=== PATIENT | male | born 1980 ===

== ENCOUNTER 2020-11-19 02:04 | Emergency (ER) | payer OTHER, SELFPAY ==
--- NOTE | ~2020-11-19 | US_ITS ---
EXAMINATION: US ABDOMEN LIMITED CLINICAL INFORMATION: Right upper quadrant/epigastric pain. COMPARISON: None TECHNIQUE: Real-time imaging of the right upper quadrant abdominal viscera. FINDINGS: Partially limited exam due to bowel gas. PANCREAS: The visualized proximal portion of the pancreas is unremarkable. The distal portion is obscured secondary to overlying bowel gas. LIVER: The liver is normal in size. The liver contour is normal. Parenchymal echogenicity is normal. There is a left lobe cyst measuring up to 1.6 cm. There is no intrahepatic biliary duct dilatation seen. GALLBLADDER: The gallbladder is physiologically distended without evidence of stones, sludge, polyps, wall thickening or pericholecystic fluid. Sonographic Jones sign is reportedly negative. COMMON BILE DUCT: Normal in caliber measuring 0.4 cm in diameter. RIGHT KIDNEY: No hydronephrosis. No renal calculi or focal parenchymal lesions. The kidney measures 10.9 cm in maximum dimension. FREE FLUID: None. US/US abdomen limited IMPRESSION: No acute findings identified.
[2020-11-19 02:47] VITALS: BP 128/86; PULSE 60; RESP 18; TEMP 36.4; O2SAT 99; BMI 25.8
[2020-11-19 03:15] LABS: MANUAL DIFF FLAG NO
--- NOTE | 2020-11-19 03:19 | ED_ITS ---
HPI - Abdominal Pain General Chief Complaint: Abdominal Pain Stated Complaint: Abdominal Pain Time Seen by Provider: 11/19/20 02:14 Source: patient Mode of arrival: ambulatory History of Present Illness HPI narrative: This is a 40-year-old male who presents with 2nd episode of abdominal discomfort that has resulted in nausea and vomiting times 10, nonbloody/nonbilious and patient states he has had improvement of his abdominal discomfort afterwards. He denies any associated fever, chills, diarrhea, urinary pain/burning/frequency. He currently is pain free. Related Data Allergies Allergy/AdvReac Type Severity Reaction Status Date / Time No Known Allergies Allergy Unverified 03/01/20 16:54 Review of Systems Review of Systems Pertinent positives and negatives as stated in HPI and 10 point review of systems is otherwise negative. Physical Exam Vital Signs: Vital Signs: Last Vital Signs Temp 98.7 F 11/19/20 04:00 Pulse 54 11/19/20 04:00 Resp 18 11/19/20 04:00 BP 114/68 11/19/20 04:00 Pulse Ox 97 11/19/20 04:00 Body Mass Index 25.8 VITAL SIGNS: Reviewed. GENERAL: Well developed, well nourished, in no acute distress. HEAD: Normocephalic/atraumatic EYES: PERRLA, EOMI OROPHARYNX: no oral lesions noted, posterior pharynx clear NECK: Supple, no adenopathy LUNGS: Normal breath sounds. No adventitious sounds or accessory muscle use. SpO2<99> CARDIOVASCULAR: Regular rate and rhythm without noted murmurs ABDOMEN: Soft, tenderness at right upper quadrant/epigastric, Jones's positive, non-distended with bowel sounds. Course Course Course Narrative: 40-year-old male with history and clinical presentation sugge stive of cholecystitis, biliary colic and less likely pancreatitis or gastritis. Review of all investigations negative for acute findings. Altered password test with the patient at bedside and he was discharged in stable condition with instructions to follow-up with his primary care provider for re-evaluation and further outpatient management. MDM - Abdominal Pain Lab Data Result diagrams: 11/19/20 02:56 11/19/20 02:56 Labs: Lab Results 11/19/20 11/19/20 11/19/20 Range/Units 02:56 02:56 02:56 WBC 11.2 H (4.8-10.8) X10*3/uL RBC 4.59 L (4.60-5.80) X10*6/uL Hgb 13.9 L (14.0-18.0) g/dl Hct 42.0 (42-52) % MCV 91.5 (80-98) fL MCH 30.3 (27.0-33.0) pg MCHC 33.1 (31.0-36.0) g/dl RDW 13.5 (11.0-16.0) % Plt Count 269 (160-400) X10*3/uL MPV 9.1 L (9.4-12.4) fL Immature Gran % (Auto) 0.4 (0.0-0.4) % Neut % (Auto) 87.6 H (45-73) % Lymph % (Auto) 7.0 L (20-40) % [place] % (Auto) 4.4 (2-11) % Eos % (Auto) 0.3 (0-4) % Baso % (Auto) 0.3 (0-2) % Lymph # (Auto) 0.8 L (1.2-4.9) X10*3/uL [place] # (Auto) 0.5 (0.1-1.2) X10*3/uL Eos # (Auto) 0.0 (0.0-0.4) X10*3/uL Baso # (Auto) 0.0 (0.0-0.2) X10*3/uL Abs Immat Gran (auto) 0.04 H (0.00-0.03) X10*3/uL Absolute Neuts (auto) 9.8 H (2.0-8.3) X10*3/uL Absolute Nucleated RBC 0.000 (0.0-0.012) X10*3/uL Nucleated RBC % (auto) 0.0 (0.0-0.2) /100WBC Sodium 142 (135-145) mmol/L Potassium 3.7 (3.3-5.1) mmol/L Chloride 104 (96-108) mmol/L Carbon Dioxide 30 H (22-29) mmol/L Anion Gap 12 (12-20) BUN 15 (9-16) mg/dL Creatinine 0.92 (0.5-1.4) mg/dL Estim Creat Clear Calc 97.7 Estimated GFR > 60 Random Glucose 114 (60-115) mg/dL Calcium 8.8 (8.4-10.2) mg/dL Total Bilirubin 0.6 (0.0-1.0) mg/dL AST 21 (5-37) U/L ALT 19 (0-40) U/L Alkaline Phosphatase 83 (39-117) U/L Total Protein 6.9 (6.5-8.0) g/dL Albumin 4.3 (3.5-5.0) g/dL Lipase 36 (8-78) U/L Discharge Plan Discharge Clinical Impression: Gastroenteritis Patient Disposition: Home, Self-Care Instructions: Gastroenteritis (ED) Additional Instructions: Resume all home medications as prescribed. Please follow-up with your primary care provider for re-evaluation and further outpatient management. Return to the ER for any worsening of symptoms. Referrals: Dashawn Davis MD [Primary Care Provider] - 2 days [facility] Past Medical History Source: nursing notes reviewed Medical History ADHD No acute medical problems Surgical History Previous back surgery Social History Social History Alcohol intake: current Alcohol intake frequency: holidays/special occasions only Smoked in Last 30 Days: No Use of substances other than those prescribed or required for medical reasons: No Advance Directives: No Advance Directives Information Provided: Yes
[2020-11-19 03:46] LABS: Alanine Aminotransferase 19 U/L (0-40); Albumin Level 4.3 g/dL (3.5-5.0); Alkaline Phosphatase 83 U/L (39-117); Anion Gap 12 (12-20); Aspartate Amino Transferase 21 U/L (5-37); Bilirubin Total 0.6 mg/dL (0.0-1.0); Blood Urea Nitrogen 15 mg/dL (9-16); Calcium 8.8 mg/dL (8.4-10.2); Carbon Dioxide 30 mmol/L (22-29); Chloride 104 mmol/L (96-108); Creatinine Clr Calc Pharmacy 97.7; Estimated Glomerular Filt Rate > 60; Glucose Random 114 mg/dL (60-115); Potassium 3.7 mmol/L (3.3-5.1); Sodium 142 mmol/L (135-145); Total Protein 6.9 g/dL (6.5-8.0)
[2020-11-19 03:47] LABS: Lipase 36 U/L (8-78)
[2020-11-19 04:00] VITALS: BP 114/68; PULSE 54; RESP 18; TEMP 37.1; O2SAT 97
[2020-11-19 04:12] LABS: Basophils Percent Auto 0.3 % (0-2); Eosinophils Percent Auto 0.3 % (0-4); Hemoglobin 13.9 g/dl (14.0-18.0); Imm Gran Abs Auto 0.04 X10*3/uL (0.00-0.03); Imm Gran Pct Auto 0.4 % (0.0-0.4); Lymphocytes Absolute Auto 0.8 X10*3/uL (1.2-4.9); Mean Corpuscular HGB Conc 33.1 g/dl (31.0-36.0); Mean Corpuscular Hemoglobin 30.3 pg (27.0-33.0); Mean Corpuscular Volume 91.5 fL (80-98); Mean Platelet Volume 9.1 fL (9.4-12.4); Monocytes Absolute Auto 0.5 X10*3/uL (0.1-1.2); Monocytes Percent Auto 4.4 % (2-11); Neutrophils Absolute Auto 9.8 X10*3/uL (2.0-8.3); Neutrophils Percent Auto 87.6 % (45-73); Platelet Count 269 X10*3/uL (160-400); Red Blood Count 4.59 X10*6/uL (4.60-5.80); Red Cell Distribution Width 13.5 % (11.0-16.0); White Blood Count 11.2 X10*3/uL (4.8-10.8)
[2020-11-19] MEDS: 0.9 % Sodium Chloride 2,000 ML 999 ML IV (04:58)
== END 2020-11-19 07:34 | disposition home or self-care (01) ==
PROVIDERS: Emergency Provider Student in an Organized Health Care Education/Training Program; PCP Family Medicine
DX: K52.9 Noninfective gastroenteritis and colitis, unspecified (principal); R10.9 Unspecified abdominal pain
CPT/HCPCS: 36415; 76705; 80053; 83690; 85025; 96360; 99284

== ENCOUNTER 2021-03-21 09:53 | Outpatient (REF) | payer OTHER, SELFPAY | END 2021-03-21 09:54 | disposition home or self-care (01) | LOC: HO.LAB 09:53 | PROVIDERS: PCP Physician Assistant; Visit Provider Internal Medicine | DX: Z20.822 Contact with and (suspected) exposure to COVID-19 (principal) | CPT/HCPCS: C9803; U0003; U0005 ==

== ENCOUNTER 2023-11-17 03:25 | Inpatient (IN) | payer MEDICAID, SELFPAY ==
[2023-11-17] VITALS (15 sets, daily range): BP systolic 133–167; BP diastolic 75–97; PULSE 58–97; RESP 12–22; TEMP 36.4–38.3; O2SAT 95–100; BMI 26.0; BMI 26.6
--- NOTE | ~2023-11-17 | CT_ITS ---
EXAMINATION: CT ABDOMEN AND PELVIS WITH CONTRAST CLINICAL INFORMATION: Epigastric pain. COMPARISON: Abdomen ultrasound from 11/19/2020 TECHNIQUE: Multidetector volumetric images were obtained from the superior aspect of the liver through the pubic symphysis following administration 85 mL of Omnipaque 350 intravenous contrast. Sagittal and coronal reformatted images were obtained on the technologist's workstation. Oral contrast: No This CT examination was performed using dose optimization techniques as appropriate, variously including the following: *Automated exposure control *Adjustment of mA and/or kV according to patient size (this includes techniques or standardized protocols for targeted exams where dose is matched to indication/reason for exam; i.e. extremities or head) *Use of iterative reconstruction technique DLP: 530 mGy-cm FINDINGS: LUNG BASES: No pulmonary consolidation or pleural effusion. There is atherosclerotic calcification of the visualized left anterior descending and right coronary arteries. HEPATOBILIARY: Simple cysts within the liver, largest in the left lobe 2 cm AP. Gallbladder is distended up to 4.2 cm transverse diameter and 11.5 cm in length. There appear to be faintly visible calculi within the lumen of the gallbladder and findings include calcific density in the region of the gallbladder neck. Gallbladder wall is diffusely thickened and pericholecystic fluid is present. Common bile duct is 0.6 cm diameter. PANCREAS: No edema, pancreatic ductal dilatation or mass. SPLEEN: Normal. ADRENAL GLANDS: Normal. KIDNEYS AND URETERS: Kidneys are normal in size and enhance symmetrically. No nephrolithiasis, hydronephrosis or perinephric edema. 1.4 cm simple cyst of the left kidney. No renal imaging follow-up is recommended for a simple cyst. BLADDER: Normal. BOWEL AND PERITONEUM: No dilated bowel loops. The trace amount of fluid adjacent to the second portion of duodenum appears to be secondary to the cholecystitis. No dilated bowel loops. The appendix is normal. ABDOMINAL WALL: Unremarkable. VASCULATURE: Abdominal aorta is normal in caliber and its branches are widely patent. LYMPH NODES: No pathologic sized lymph nodes in the abdomen or pelvis. No inguinal lymphadenopathy. PELVIC VISCERA: Prostate gland is unremarkable. Trace amount of free fluid is present within the pelvis. MUSCULOSKELETAL: Degenerative loss of disc height, vacuum disc phenomenon and disc bulge at L4-L5. No acute or suspicious osseous abnormality. CT/CT abdomen pelvis w IV con IMPRESSION: Imaging findings consistent with cholelithiasis and acute cholecystitis.
[2023-11-17 03:49] LABS: MANUAL DIFF FLAG NO
[2023-11-17 03:50] LABS: Basophils Absolute Auto 0.1 X10*3/uL (0.0-0.2); Basophils Percent Auto 0.4 % (0-2); Eosinophils Absolute Auto 0.2 X10*3/uL (0.0-0.4); Eosinophils Percent Auto 1.5 % (0-4); Hematocrit 42.1 % (42.0-52.0); Hemoglobin 14.6 g/dl (14.0-18.0); Imm Gran Abs Auto 0.05 X10*3/uL (0.00-0.03); Imm Gran Pct Auto 0.4 % (0.0-0.4); Lymphocytes Percent Auto 15.1 % (20-40); Mean Corpuscular HGB Conc 34.7 g/dl (31.0-36.0); Mean Corpuscular Hemoglobin 30.8 pg (27.0-33.0); Mean Corpuscular Volume 88.8 fL (80.0-98.0); Mean Platelet Volume 8.6 fL (9.4-12.4); Monocytes Absolute Auto 1.5 X10*3/uL (0.1-1.2); Monocytes Percent Auto 11.1 % (2-11); Neutrophils Absolute Auto 9.5 x10*3/uL (2.0-8.3); Neutrophils Percent Auto 71.5 % (45-73); Platelet Count 252 X10*3/uL (160-400); Red Blood Count 4.74 X10*6/uL (4.60-5.80); Red Cell Distribution Width 13.6 % (11.0-16.0); White Blood Count 13.3 X10*3/uL (4.8-10.8)
[2023-11-17 04:01] LABS: Anion Gap 15 (12-20); Blood Urea Nitrogen 18 mg/dL (9-16); Calcium 10.3 mg/dL (8.4-10.2); Carbon Dioxide 26 mmol/L (22-29); Chloride 102 mmol/L (96-108); Creatinine Clr Calc Pharmacy 102.6; Estimated Glomerular Filt Rate > 60; Glucose Random 122 mg/dL (60-115); Potassium 3.9 mmol/L (3.3-5.1); Sodium 139 mmol/L (135-145)
[2023-11-17 04:26] LABS: Influenza A PCR NEGATIVE (Negative); Influenza B PCR NEGATIVE (Negative); Resp Syncy Virus RNA Qual PCR NEGATIVE (Negative); SARS COV2 PCR INHOUSE NEGATIVE (Negative)
[2023-11-17 04:29] LABS: Alanine Aminotransferase 16 U/L (0-40); Albumin Level 4.2 g/dL (3.5-5.0); Alkaline Phosphatase 74 U/L (39-117); Aspartate Amino Transferase 17 U/L (5-37); Bilirubin Direct 0.3 mg/dL (0.0-0.5); Bilirubin Total 0.7 mg/dL (0.0-1.0); Lipase 31 U/L (8-78); Total Protein 7.4 g/dL (6.5-8.0)
--- NOTE | 2023-11-17 05:32 | ED_ITS ---
HPI - Abdominal Pain General Chief Complaint: Abdominal Pain Stated Complaint: stomach/abd pain, fever Time Seen by Provider: 11/17/23 05:26 Source: patient Mode of arrival: ambulatory Limitations: no limitations History of Present Illness ED Provider: Dr. Comfort Orellana HPI narrative: Patient comes to the emergency room complaining of nausea, vomiting, severe epigastric pain. Patient denies diarrhea fever or chills. Patient has been having intermittent pain for the last 2 nights, but tonight a few hours ago patient started having significant pain. Related Data Allergies Allergy/AdvReac Type Severity Reaction Status Date / Time No Known Allergies Allergy Unverified 11/17/23 03:35 Review of Systems Review of Systems Constitutional : No Weight loss, No Fever, No Chills, No Night Sweats, No Fatigue, No Malaise ENT/Mouth : No Hearing loss, No Ear Pain, No Nasal Congestion, No Sinus Pain, No Hoarseness, No sore throat, No Rhinorrhea, No Swallowing Difficulty Eyes: No Eye Pain, No Swelling, No Redness, No Foreign Body, No Discharge, No Vision Changes Cardiovascular : No Chest Pain, No SOB, No Dyspnea on Exertion, No Orthopnea, No Edema, No Palpitations Respiratory : No Cough, No Sputum, No Wheezing, No Smoke Exposure, No Dyspnea Gastrointestinal : Complaining of nausea vomiting, no diarrhea, complaining of severe epigastric pain. Genitourinary : no irregular bleeding, No Dysuria, No Urinary Frequency, No Hematuria, No Urinary Incontinence, No Urgency, No Flank Pain, No Urinary Flow Changes, No Hesitancy Musculoskeletal : No joint pain, No Myalgias, No Joint Swelling Skin : No Skin Lesions, No rash Neuro : No Weakness, No Numbness, No Paresthesias, No Loss of Consciousness, No Dizziness, No Headache Psych : No Anxiety/Panic, No Depression, No SI/HI/AH/VH, No Social Issues, Heme/Lymph: No Bruising, No Bleeding,No Lymphadenopathy Endocrine : No Polyuria, No Polydipsia, No Temperature Intolerance [facility] Past Medical History Medical History ADHD No acute medical problems Surgical History Previous back surgery Social History Social History Alcohol intake: current Alcohol intake frequency: holidays/special occasions only Advance Directives: No Physical Exam ED Vital Signs: Vital Signs - 24 hr 11/17/23 03:32 11/17/23 04:40 11/17/23 07:20 Temperature 97.6 F 97.8 F 98.1 F Pulse Rate 58 61 63 Respiratory Rate 18 19 18 Blood Pressure 136/80 167/97 H 145/89 H Pulse Oximetry 100 100 100 Oxygen Delivery Method Room Air Room Air Room Air 11/17/23 08:06 Temperature Pulse Rate Respiratory Rate 20 Blood Pressure Pulse Oximetry Oxygen Delivery Method BMI result Body Mass Index 26.0 Const Other: Appearance: Alert. Oriented X3. No acute distress. Eyes: Pupils equal, round and reactive to light. ENT: Pharynx normal. Neck: Normal inspection. Neck supple. No lymph nodes noted. No crepitus CVS: Normal heart rate and rhythm. Pulses normal. Normal S1 and S2 Respiratory: No respiratory distress. Breath sounds normal. No Wheezing. No rales Abdomen: Soft, significant pain to palpation in right upper quadrant and epigastric area, positive Jones sign Skin: Skin warm and dry. Normal skin color. Normal skin turgor. Extremities: No lower extremity edema. No Lacerations. No Rash Neuro: Oriented X 3. No motor deficit. No sensory deficit. Moving all extremities. No slurred speech. CN 2 through 12 grossly intact Psych: calm, cooperative, normal affect Course Course Course Narrative: -patient has received normal saline, famotidine, ketorolac, 2 doses of morphine, 1 dose of Dilaudid, Reglan, Zofran, Zosyn -my interpretation of CT scan, acute cholecystitis? CT scan is definitely abnormal -the radiology reports are delay today. I asked Dr. Hua to review patient's CT scan. Ultrasound pending -labs remained stable, blood pressure 145/89, heart rate 63, no fever, oxygen saturation 100% on room air -sign out given to my colleague Dr. Hill Medical Decision Making Medical Decision Making MDM Narrative: Radiology report confirmed acute cholecystitis -discussed the patient with Dr. Hua, patient being admitted/likely going to the OR to -patient is NPO -I informed the patient of the above-mentioned findings. -admission pending per surgery but they are aware of patient. Sign-out given to my colleague Dr. Hill Differential Diagnosis Differential Diagnoses: The differential diagnosis associated with the presentation includes (Acute cholecystitis, pancreatitis, volvulus, SBO) Admission/Observation Consideration of admission/observation: Escalation of care including admission/observation considered (Patient will be admitted) Consult Healthcare Provider Management of the patient was discussed with: Biochemistry Professor Lab Data MDM Lab Attestation statement: I reviewed the patient's lab results. 11/17/23 03:42 11/17/23 03:42 Labs: Lab Results 11/17/23 Range/Units 03:42 WBC 13.3 H (4.8-10.8) X10*3/uL RBC 4.74 (4.60-5.80) X10*6/uL Hgb 14.6 (14.0-18.0) g/dl Hct 42.1 (42.0-52.0) % MCV 88.8 (80.0-98.0) fL MCH 30.8 (27.0-33.0) pg MCHC 34.7 (31.0-36.0) g/dl RDW 13.6 (11.0-16.0) % Plt Count 252 (160-400) X10*3/uL MPV 8.6 L (9.4-12.4) fL Immature Gran % (Auto) 0.4 (0.0-0.4) % Neut % (Auto) 71.5 (45-73) % Lymph % (Auto) 15.1 L (20-40) % [place] % (Auto) 11.1 H (2-11) % Eos % (Auto) 1.5 (0-4) % Baso % (Auto) 0.4 (0-2) % Lymph # (Auto) 2.0 (1.2-4.9) X10*3/uL [place] # (Auto) 1.5 H (0.1-1.2) X10*3/uL Eos # (Auto) 0.2 (0.0-0.4) X10*3/uL Baso # (Auto) 0.1 (0.0-0.2) X10*3/uL Abs Immat Gran (auto) 0.05 H (0.00-0.03) X10*3/uL Absolute Neuts (auto) 9.5 H (2.0-8.3) x10*3/uL Absolute Nucleated RBC 0.000 (0.0-0.012) X10*3/uL Nucleated RBC % (auto) 0.0 (0.0-0.2) /100WBC Sodium 139 (135-145) mmol/L Potassium 3.9 (3.3-5.1) mmol/L Chloride 102 (96-108) mmol/L Carbon Dioxide 26 (22-29) mmol/L Anion Gap 15 (12-20) BUN 18 H (9-16) mg/dL Creatinine 0.85 (0.5-1.4) mg/dL Estim Creat Clear Calc 102.6 Estimated GFR > 60 Random Glucose 122 H (60-115) mg/dL Calcium 10.3 H D (8.4-10.2) mg/dL Total Bilirubin 0.7 (0.0-1.0) mg/dL Direct Bilirubin 0.3 (0.0-0.5) mg/dL AST 17 (5-37) U/L ALT 16 (0-40) U/L Alkaline Phosphatase 74 (39-117) U/L Total Protein 7.4 (6.5-8.0) g/dL Albumin 4.2 (3.5-5.0) g/dL Lipase 31 (8-78) U/L Influenza Type A (PCR) NEGATIVE (Negative) Influenza Type B (PCR) NEGATIVE (Negative) RSV RNA Qual (PCR) NEGATIVE (Negative) SARS-CoV-2 RNA (RT-PCR) NEGATIVE (Negative) Independent Interpretation I performed an independent interpretation of an: CT Scan Radiology Impression Discussion of test interpretation with radiology: I have reviewed the radiologist's reading. Radiologist Impression: FINDINGS: LUNG BASES: No pulmonary consolidation or pleural effusion. There is atherosclerotic calcification of the visualized left anterior descending and right coronary arteries. HEPATOBILIARY: Simple cysts within the liver, largest in the left lobe 2 cm AP. Gallbladder is distended up to 4.2 cm transverse diameter and 11.5 cm in length. There appear to be faintly visible calculi within the lumen of the gallbladder and findings include calcific density in the region of the gallbladder neck. Gallbladder wall is diffusely thickened and pericholecystic fluid is present. Common bile duct is 0.6 cm diameter. PANCREAS: No edema, pancreatic ductal dilatation or mass. SPLEEN: Normal. ADRENAL GLANDS: Normal. KIDNEYS AND URETERS: Kidneys are normal in size and enhance symmetrically. No nephrolithiasis, hydronephrosis or perinephric edema. 1.4 cm simple cyst of the left kidney. No renal imaging follow-up is recommended for a simple cyst. BLADDER: Normal. BOWEL AND PERITONEUM: No dilated bowel loops. The trace amount of fluid adjacent to the second portion of duodenum appears to be secondary to the cholecystitis. No dilated bowel loops. The appendix is normal. ABDOMINAL WALL: Unremarkable. VASCULATURE: Abdominal aorta is normal in caliber and its branches are widely patent. LYMPH NODES: No pathologic sized lymph nodes in the abdomen or pelvis. No inguinal lymphadenopathy. PELVIC VISCERA: Prostate gland is unremarkable. Trace amount of free fluid is present within the pelvis. MUSCULOSKELETAL: Degenerative loss of disc height, vacuum disc phenomenon and disc bulge at L4-L5. No acute or suspicious osseous abnormality. CT/CT abdomen pelvis w IV con IMPRESSION: Imaging findings consistent with cholelithiasis and acute cholecystitis Independent Historian Clinical information obtained from an independent historian. History obtained from or confirmed by: Spouse Medications Administered Discontinued Medications Generic Name Dose Route Start Last Admin Trade Name Freq PRN Reason Stop Dose Admin Famotidine 20 mg 11/17/23 05:29 11/17/23 05:33 Famotidine/Pf 20 Mg/2 Ml Vial IVPUSH 11/17/23 05:30 20 mg ONCE ONE Administration Hydromorphone HCl 1 mg 11/17/23 07:59 11/17/23 08:06 Hydromorphone Hcl 1 Mg/Ml Syringe IVPUSH 11/17/23 08:00 1 mg ONCE ONE Administration Protocol Sodium Chloride 1,000 mls @ 999 mls/hr 11/17/23 05:29 11/17/23 08:10 Ns IVCONT 11/17/23 06:29 Infused .Q1H1M ONE Infusion Iohexol 85 ml 11/17/23 06:04 11/17/23 06:05 Iohexol 350 Mg/Ml 100 Ml Infus..Btl IV 11/17/23 06:05 85 ml ONCE ONE Administration Ketorolac Tromethamine 30 mg 11/17/23 07:50 11/17/23 08:03 Ketorolac Tromethamine 30 Mg/Ml Vial IVPUSH 11/17/23 07:51 30 mg ONCE ONE Administration Morphine Sulfate 4 mg 11/17/23 05:29 11/17/23 05:34 Morphine Sulfate 4 Mg/Ml Cartridge IVPUSH 11/17/23 05:30 4 mg ONCE ONE Administration Protocol Morphine Sulfate 4 mg 11/17/23 06:38 11/17/23 06:42 Morphine Sulfate 4 Mg/Ml Cartridge IVPUSH 11/17/23 06:39 4 mg ONCE ONE Administration Protocol Ondansetron HCl 4 mg 11/17/23 05:29 11/17/23 05:34 Ondansetron Hcl 4 Mg/2 Ml Vial IVPUSH 11/17/23 05:30 4 mg ONCE ONE Administration Prochlorperazine Edisylate 10 mg 11/17/23 07:50 11/17/23 08:05 Prochlorperazine Edisylate 10 Mg/2 Ml Vial IVPUSH 11/17/23 07:51 10 mg ONCE ONE Administration Critical Care Time Critical Care Time Critical Care Time: Yes Total Critical Care Time: 75 Attestation: I have personally provided critical care time. Time includes review of lab data, radiology results, discussion with consultants, and monitoring for potential decompensation. Intervention performed as documented. Discharge Plan Discharge Clinical Impression: Acute cholecystitis Patient Disposition: Admitted As Inpatient Print Language: Andor[place]
[2023-11-17] MEDS: Famotidine/PF 20 MG/2 ML VIAL IVPUSH (05:33)
[2023-11-17] MEDS: 0.9 % Sodium Chloride 1,000 ML 999 ML IVCONT (05:34)
[2023-11-17] MEDS: ondansetron HCL 4 MG/2 ML VIAL IVPUSH ×2 (05:34→12:28)
[2023-11-17] MEDS: Morphine Sulfate 4 MG/ML CARTRIDGE IVPUSH ×4 (05:34→15:48)
[2023-11-17] MEDS: iohexoL 350 MG/ML 100 ML INFUS..BTL 85 ML IV (06:05)
[2023-11-17] MEDS: Ketorolac Tromethamine 30 MG/ML VIAL IVPUSH (08:03)
[2023-11-17] MEDS: Prochlorperazine Edisylate 10 MG/2 ML VIAL IVPUSH (08:05)
[2023-11-17] MEDS: HYDROmorphone HCl 1 MG/ML SYRINGE IVPUSH (08:06)
[2023-11-17 08:23] LABS: Appearance Urine Clear; Color Urine Yellow; Glucose Urine UA Negative (Negative); Leukocyte Esterase Urine Negative (Negative); Nitrite Urine Negative (Negative); PH 6.5 (5.0-9.0); Specific Gravity - Urine >= 1.030 (1.005-1.025); Urine Blood Negative (Negative); Urine Ketones Trace mg/dL (Negative); Urine Protein Negative (Neg-Trace)
[2023-11-17] MEDS: Piperacillin Sodium/Tazobactam 4.5 GM in 0.9 % Sodium Chloride 100 ML IV (08:42)
[2023-11-17 08:44] LABS: Lactic Acid 0.8 mmol/L (0.5-2.0)
[2023-11-17 08:46] LABS: INTERNATIONAL NORM RATIO 1.1 (0.9-1.1); Prothrombin Time 13.6 SEC (11.1-13.3)
[2023-11-17 08:48] LABS: Partial Thromboplastin Time 35.8 SEC (26.0-36.8)
--- NOTE | 2023-11-17 12:10 | PM.HPGS ---
History of Present Illness History of Present Illness Date of Service: 11/17/23 Chief complaint: abdominal pain Narrative: Dominguez Flores is a 43 year old male who comes in with several day history of abdominal pain more in the epigastric area but a little bit to the right side. He has had pain similar to this on and off over the years and a couple years ago it got bad any came here for nothing of significance was found. He comes in now after having secondary pain last night after eating some Mandarin. Here he is noted to have discrete tenderness in the right upper quadrants and guarding. Review of Systems Review of Systems: Yes all other systems are reviewed and are negative PMFSH Past Medical History Medical History ADHD No acute medical problems Surgical History Surgical History Previous back surgery Social History Social History Alcohol intake: current Alcohol intake frequency: holidays/special occasions only Advance Directives: No Meds Allergies Allergy/AdvReac Type Severity Reaction Status Date / Time No Known Allergies Allergy Unverified 11/17/23 03:35 Active Medications: Current Medications Sodium Chloride (Ns) 1,000 mls @ 100 mls/hr IVCONT .Q10H [facility] Piperacillin Sod/Tazobactam (Sod 3.375 gm/ Sodium Chloride) 50 mls @ 100 mls/hr IV RQ6H [facility] Morphine Sulfate (Morphine Sulfate 4 Mg/Ml Cartridge) 4 mg IVPUSH Q4H PRN; Protocol PRN Reason: Pain, Severe (Pain Scale 7-10) Ondansetron HCl (Ondansetron Hcl 4 Mg/2 Ml Vial) 4 mg IVPUSH RQ6H PRN PRN Reason: Nausea and Vomiting Pantoprazole Sodium (Pantoprazole Sodium 40 Mg/10 Ml Vial) 40 mg IVPUSH DAILY [facility] Sodium Chloride (0.9 % Sodium Chloride Flush 3 Ml Syringe) 3 ml IVFLUSH QSHIFT [facility] Physical Exam Vital Signs: Vital Signs: Last Vital Signs Temp 98 F 11/17/23 08:45 Pulse 62 11/17/23 08:45 Resp 12 11/17/23 08:45 BP 143/92 H 11/17/23 08:45 Pulse Ox 99 11/17/23 08:45 O2 Del Method Room Air 11/17/23 08:45 BMI result Body Mass Index 26.0 Const: General: cooperative, healthy appearing, comfortable and acute distress moderate Orientation/consciousness: patient oriented x3 Eyes: Other: Nonicteric Resp: Effort & Inspection: normal respiratory effort Auscultation: clear to auscultation bilaterally Cardio: Rate: regular rate Rhythm: regular rhythm GI: Other: Abdomen is soft not distended he has tender in the epigastric and right upper quadrant with some guarding no rebound or peritoneal signs no masses. Skin: Other: Nonicteric Neuro: General: patient oriented x3 Extrem: General: Yes normal to inspection Psych: Appearance: grossly normal Mental Status: mental status grossly normal Affect: normal affect Results Results Labs: Short CBC 11/17/23 Range/Units 03:42 WBC 13.3 H (4.8-10.8) X10*3/uL Hgb 14.6 (14.0-18.0) g/dl Hct 42.1 (42.0-52.0) % Plt Count 252 (160-400) X10*3/uL BMP 11/17/23 03:42 Sodium 139 Potassium 3.9 Chloride 102 Carbon Dioxide 26 BUN 18 H Creatinine 0.85 Calcium 10.3 H D Liver Function 11/17/23 Range/Units 03:42 Total Bilirubin 0.7 (0.0-1.0) mg/dL Direct Bilirubin 0.3 (0.0-0.5) mg/dL AST 17 (5-37) U/L ALT 16 (0-40) U/L Alkaline Phosphatase 74 (39-117) U/L Albumin 4.2 (3.5-5.0) g/dL Urine 11/17/23 Range/Units 08:17 Urine Color Yellow Urine Appearance Clear Urine pH 6.5 (5.0-9.0) Ur Specific [place] >= 1.030 H (1.005-1.025) Urine Protein Negative (Neg-Trace) mg/dL Urine Glucose (UA) Negative (Negative) mg/dL Abdomen CT scan report/results: report reviewed and image reviewed CT scan - pelvis: report reviewed and image reviewed Additional studies: Chart - [employer] ? Diagnostics Subcategory All Activity ??:?? All Time ??:?? All Subcategories Filter Laboratory Imaging Microbiology Pathology Blood Bank Tests Cardiovascular Other Specialty DATE TYPE STATUS REF RANGE/AUTHOR Hx Today 06:05 Abdomen/Pelvis CT Signed Jarad Guardado 11/19/20 03:36 Abdomen Ultrasound Signed Sergey Bae Roberto Acute 43, M?1980 MRN#? [id number] ADM IN,?Emergency Department??ED Bed 10?-ED10? 5ft 7in 166lb 0.129oz BSA: 1.89m? BMI: 26.0kg/m? Acc#? [id number] Full Code Historical Visits Allergies No Known Allergies Problems ? ONSET Acute cholecystitis Vital Signs Today 08:45 BP 143/92?H Pulse 62? Resp 12? Temp 98 F? O2 Sat 99? Delivery Room Air? Home Meds Prescription Monitoring Program No Data to Display My Widget No Data to Display Diagnostics Reports Dominguez Flores??43??M??1980 ? Allergy/Adv: No Known Allergies Close Abdomen/Pelvis CT (Signed) Jarad Guardado - 11/17/23 Abdomen Ultrasound (Signed) Sergey Bae - 11/19/20 Launch?Image [place] [id number] CT Scan Report Signed Patient: Dominguez Flores MR#: [id number] : 1980 Acct:[id number] Age/Sex: 43 / M ADM Date: 11/17/23 Loc: .ED Attending Dr: Ordering Physician: Comfort Orellana MD Date of Service: 11/17/23 Procedure(s): CT abdomen pelvis w IV con Accession Number(s): [id number] cc: Comfort Orellana MD; Physician,Unknown ~ EXAMINATION: CT ABDOMEN AND PELVIS WITH CONTRAST CLINICAL INFORMATION: Epigastric pain. COMPARISON: Abdomen ultrasound from 11/19/2020 TECHNIQUE: Multidetector volumetric images were obtained from the superior aspect of the liver through the pubic symphysis following administration 85 mL of Omnipaque 350 intravenous contrast. Sagittal and coronal reformatted images were obtained on the technologist's workstation. Oral contrast: No This CT examination was performed using dose optimization techniques as appropriate, variously including the following: *Automated exposure control *Adjustment of mA and/or kV according to patient size (this includes techniques or standardized protocols for targeted exams where dose is matched to indication/reason for exam; i.e. extremities or head) *Use of iterative reconstruction technique DLP: 530 mGy-cm FINDINGS: LUNG BASES: No pulmonary consolidation or pleural effusion. There is atherosclerotic calcification of the visualized left anterior descending and right coronary arteries. HEPATOBILIARY: Simple cysts within the liver, largest in the left lobe 2 cm AP. Gallbladder is distended up to 4.2 cm transverse diameter and 11.5 cm in length. There appear to be faintly visible calculi within the lumen of the gallbladder and findings include calcific density in the region of the gallbladder neck. Gallbladder wall is diffusely thickened and pericholecystic fluid is present. Common bile duct is 0.6 cm diameter. PANCREAS: No edema, pancreatic ductal dilatation or mass. SPLEEN: Normal. ADRENAL GLANDS: Normal. KIDNEYS AND URETERS: Kidneys are normal in size and enhance symmetrically. No nephrolithiasis, hydronephrosis or perinephric edema. 1.4 cm simple cyst of the left kidney. No renal imaging follow-up is recommended for a simple cyst. BLADDER: Normal. BOWEL AND PERITONEUM: No dilated bowel loops. The trace amount of fluid adjacent to the second portion of duodenum appears to be secondary to the cholecystitis. No dilated bowel loops. The appendix is normal. ABDOMINAL WALL: Unremarkable. VASCULATURE: Abdominal aorta is normal in caliber and its branches are widely patent. LYMPH NODES: No pathologic sized lymph nodes in the abdomen or pelvis. No inguinal lymphadenopathy. PELVIC VISCERA: Prostate gland is unremarkable. Trace amount of free fluid is present within the pelvis. MUSCULOSKELETAL: Degenerative loss of disc height, vacuum disc phenomenon and disc bulge at L4-L5. No acute or suspicious osseous abnormality. CT/CT abdomen pelvis w IV con IMPRESSION: Imaging findings consistent with cholelithiasis and acute cholecystitis. Dictated By: Jarad Guardado MD Signed By: <Electronically signed by Jarad Guardado MD in OV> 11/17/23804 DD/ 4 TD/TT: Beef Farmer: Assessment and Plan (1) Acute cholecystitis: Status: Acute Plan 43-year-old male with choledocholithiasis and cholecystitis. Plan to carry out laparoscopic cholecystectomy. We will keep him NPO IV fluid hydration IV antibiotics and then placed on the add on schedule for this evening for laparoscopic cholecystectomy. Risks and benefits discussed with the patient including but lost limited to bleeding infection possible bowel injury possible open procedure possible bile ducts injury and despite this he wishes to proceed. Quality Stroke Does the patient have a stroke diagnosis?: No VTE Prior VTE?: No VTE Risk Level:: Surgical - low VTE Device Contraindication: N/A - Device Ordered VTE Drug Contraindication: Treatment Not Indicated Procedures Date of Service Date of Service: 11/17/23
[2023-11-17] MEDS: Piperacillin Sodium/Tazobactam 3.375 GM in 0.9 % Sodium Chloride 50 ML IV ×2 (12:29→17:08)
[2023-11-17] MEDS: 0.9 % Sodium Chloride 1,000 ML 100 ML IVCONT (12:29)
[2023-11-17] MEDS: Pantoprazole Sodium 40 MG/10 ML VIAL IVPUSH (12:33)
--- NOTE | 2023-11-17 13:55 | PHA.MEDREC ---
Pharmacy Consult ? Medication Reconciliation Pharmacy has completed the medication reconciliation.
[2023-11-17] MEDS: Acetaminophen 325 MG TABLET 650 MG PO (16:04)
--- NOTE | 2023-11-17 16:05 | PC.NURSE ---
patient noted to have fever, medicated with prn tylenol
--- NOTE | 2023-11-17 17:44 | PC.NURSE ---
Report given to Tahira GRIMESU RN.
--- NOTE | 2023-11-17 18:27 | P.CONAN_ITS ---
HPI - Anesthesia Eval Consult details Narrative: Acute cholecystitis PMFSH Active Problems Active Problems: All Active Problems Acute cholecystitis (Acute) Past Medical History Medical History ADHD No acute medical problems Family History Family history of problems with anesthesia: No Surgical History Surgical History Previous back surgery History of Problems with Anesthesia: No Social History Social History Household Members: Significant Other Housing: House Do you presently have visiting nurse or other home services: No Alcohol intake: current Alcohol intake frequency: holidays/special occasions only Patient Tobacco Use Status: Never used Tobacco Meds Allergies Allergy/AdvReac Type Severity Reaction Status Date / Time No Known Allergies Allergy Unverified 11/17/23 03:35 Active Medications: Current Medications Acetaminophen (Acetaminophen 325 Mg Tablet) 650 mg PO Q4H PRN PRN Reason: Fever >100.4 Last Admin: 11/17/23 16:04 Dose: 650 mg Hydromorphone HCl (Hydromorphone Hcl 1 Mg/Ml Syringe) 1 mg IVPUSH Q3H PRN; Protocol PRN Reason: Pain, Severe (Pain Scale 7-10) Sodium Chloride (Ns) 1,000 mls @ 100 mls/hr IVCONT .Q10H [facility] Last Admin: 11/17/23 12:29 Dose: 100 mls/hr Piperacillin Sod/Tazobactam (Sod 3.375 gm/ Sodium Chloride) 50 mls @ 100 mls/hr IV Q6H [facility] Last Infusion: 11/17/23 17:47 Dose: Infused Ondansetron HCl (Ondansetron Hcl 4 Mg/2 Ml Vial) 4 mg IVPUSH RQ6H PRN PRN Reason: Nausea and Vomiting Last Admin: 11/17/23 12:28 Dose: 4 mg Pantoprazole Sodium (Pantoprazole Sodium 40 Mg/10 Ml Vial) 40 mg IVPUSH DAILY [facility] Last Admin: 11/17/23 12:33 Dose: 40 mg Sodium Chloride (0.9 % Sodium Chloride Flush 3 Ml Syringe) 3 ml IVFLUSH QSHIFT [facility] Last Admin: 11/17/23 15:19 Dose: Not Given Home Medications ?Medication ?Instructions ?Recorded ?Confirmed ?Last Taken ?Type dextroamphetamine-amphetamine ER 1 cap PO BID@0900,1400 11/17/23 11/17/23 11/15/23 History 20 mg 24hr capsule,extend release (Adderall XR) Exam Height,Weight and Vital Signs: Height 5 ft 7 in Weight 77 kg Last Vital Signs Temp 100.6 F H 11/17/23 17:59 Pulse 73 11/17/23 17:59 Resp 16 11/17/23 17:59 BP 156/93 H 11/17/23 17:59 Pulse Ox 96 11/17/23 17:59 O2 Del Method Room Air 11/17/23 17:59 Pertinent Lab Results Pertinent Lab Results: Laboratory Tests 11/17/23 11/17/23 11/17/23 03:42 08:17 08:26 WBC 13.3 H RBC 4.74 Hgb 14.6 Hct 42.1 MCV 88.8 MCH 30.8 MCHC 34.7 RDW 13.6 Plt Count 252 MPV 8.6 L Immature Gran % (Auto) 0.4 Neut % (Auto) 71.5 Lymph % (Auto) 15.1 L [place] % (Auto) 11.1 H Eos % (Auto) 1.5 Baso % (Auto) 0.4 Lymph # (Auto) 2.0 [place] # (Auto) 1.5 H Eos # (Auto) 0.2 Baso # (Auto) 0.1 Abs Immat Gran (auto) 0.05 H Absolute Neuts (auto) 9.5 H Absolute Nucleated RBC 0.000 Nucleated RBC % (auto) 0.0 PT INR APTT Sodium 139 Potassium 3.9 Chloride 102 Carbon Dioxide 26 Anion Gap 15 BUN 18 H Creatinine 0.85 Estim Creat Clear Calc 102.6 Estimated GFR > 60 Random Glucose 122 H Lactic Acid 0.8 Calcium 10.3 H D Total Bilirubin 0.7 Direct Bilirubin 0.3 AST 17 ALT 16 Alkaline Phosphatase 74 Total Protein 7.4 Albumin 4.2 Lipase 31 Urine Color Yellow Urine Appearance Clear Urine pH 6.5 Ur Specific [place] >= 1.030 H Urine Protein Negative Urine Glucose (UA) Negative Urine Ketones Trace Urine Blood Negative Urine Nitrite Negative Ur Leukocyte Esterase Negative Influenza Type A (PCR) NEGATIVE Influenza Type B (PCR) NEGATIVE RSV RNA Qual (PCR) NEGATIVE SARS-CoV-2 RNA (RT-PCR) NEGATIVE 11/17/23 08:28 WBC RBC Hgb Hct MCV MCH MCHC RDW Plt Count MPV Immature Gran % (Auto) Neut % (Auto) Lymph % (Auto) [place] % (Auto) Eos % (Auto) Baso % (Auto) Lymph # (Auto) [place] # (Auto) Eos # (Auto) Baso # (Auto) Abs Immat Gran (auto) Absolute Neuts (auto) Absolute Nucleated RBC Nucleated RBC % (auto) PT 13.6 H INR 1.1 APTT 35.8 Sodium Potassium Chloride Carbon Dioxide Anion Gap BUN Creatinine Estim Creat Clear Calc Estimated GFR Random Glucose Lactic Acid Calcium Total Bilirubin Direct Bilirubin AST ALT Alkaline Phosphatase Total Protein Albumin Lipase Urine Color Urine Appearance Urine pH Ur Specific [place] Urine Protein Urine Glucose (UA) Urine Ketones Urine Blood Urine Nitrite Ur Leukocyte Esterase Influenza Type A (PCR) Influenza Type B (PCR) RSV RNA Qual (PCR) SARS-CoV-2 RNA (RT-PCR) Airway Mallampati Class: II TM Dist: >3cm Neck ROM: Full Loose/Missing/Broken Teeth: No Heart: RRR Lungs: CTA Assessment and Plan Assessment Anesthesia Assessment: Anesthesia Plan Discussed and Chart Reviewed Final Anesthetic Review Family History of Problems with Anesthesia: No History of Problems with Anesthesia: No NPO: Yes ASA Class: II Final Preanesthetic Review: No Changes in Pt Med Stat, Meds/Allgs Chart Reviewed, Consent Obtained/Reviewed and Anes Risks/Benef Reviewed Patient Risk: Intermediate Procedure Risk: Intermediate Anesthetic Plan Anesthetic Plan: GA Disposition: Standard PACU
[2023-11-17] MEDS: HYDROmorphone HCl 0.5 MG/0.5 ML SYRINGE IVPUSH (19:39)
--- NOTE | 2023-11-17 23:31 | P.OP_ITS ---
Operative Note Operative Note Date of Service: 11/17/23 Narrative: Preop diagnosis-- acute cholecystitis Postop diagnosis-- acute cholecystitis Procedure-- [facility]-- general Patient is a 43-year-old male who came in with several day history of epigastric continuous pain and nausea and vomiting. Here his white count was elevated and CT scan of his abdomen and pelvis showed thickened distended gallbladder with some stones and sludge pericholecystic fluid tender in the right upper quadrant consistent with acute cholecystitis. As a result he comes in for laparoscopic cholecystectomy. Findings--very intrahepatic thickened inflamed gallbladder with a lot of omentum and gastrocolic fat tissue stuck to the gallbladder. There was a moderate amount of bleeding through the procedure however the procedure progress safely and critical view was had. Procedure-- Patient was brought to the operative room under Anesthesia guidance was intubated. He had compression stockings placed before induction had been receiving antibiotics. His abdomen was prepped and draped in standard surgical fashion. An infraumbilical incision was created after numbing the area with a 0.25% Marcaine with epinephrine. Dissection was carried down to the anterior abdominal wall fascia which was grasped with Brandy's and transected 0 Vicryl pursestring suture placed and Horner trocar introduced into the peritoneal cavity. Pressure was set to 15 mmHg pressure. Patient was positioned head up left side down and 3 5 mm ports were then placed under direct visualization using local 1 in the epigastric area and 2 in the right upper quadrant area. T he gallbladder was barely identified and looked very intrahepatic and thickened and not pliable. A needle was placed and moderate amount of bilious material was removed then using blunt dissectors and the suction gardener florist we were able to dissect off carefully going from lateral to medial lot of the fat tissue and the gastrocolic tissue such that the gallbladder was identified. In the process of doing it the gallbladder tore there was a hole in it there was more leakage of some bile it really was very thickened inflamed and looked quite a mass. However we continued to stay safe and with retracting it as much as we could superiorly and laterally the cystic duct was dissected out the cystic artery was noted behind the very large [place] lymph node. With blunt dissection the stomach duodenal area was dropped and moved way in so that we got pretty much the critical view of the structures going directly into the gallbladder. Three clips were placed down and the cystic duct transected for the cystic artery to a clipped down and 1 up and transected then using a lot more blunt dissection as well as the hook cautery the gallbladder was removed from the liver bed. In the process of doing there was more bleeding and oozing and some of the intrahepatic gallbladder was difficult to removed from the back liver fossa. Eventually we were able to dissect this out some more such that all of the gallbladder was removed although it came out a little bit in pieces. The gallbladder was placed in the Endo-Catch bag and removed from the infraumbilical port site. Pneumoperitoneum was then reestablished in trying to get it out we need to make the infraumbilical fascia opening a little bit bigger some Surgicel was placed in the gallbladder fossa and the area was suctioned and irrigated with about 4 L irrigation fluid flat ANASTASIA drain was placed in the right upper quadrant after the Surgicel was removed and decent hemostasis was had. The ports were then removed under direct visualization after ensuring that the anatomy all looked fine. The infraumbilical port site was then closed with 1 stitch and approximating the pursestring suture and these 2 were tied to each other more local was used. Four Monocryl was used to approximate the skin edges and Steri-Strips placed. At the end of the case all sponge instrument needle counts were correct estimated blood loss was about 250 cc specimen sent was the gallbladder. Patient was extubated returned stable to the recovery room
[2023-11-18] MEDS: 0.9 % Sodium Chloride 1,000 ML 100 ML IVCONT (00:04)
[2023-11-18] MEDS: Piperacillin Sodium/Tazobactam 3.375 GM in 0.9 % Sodium Chloride 50 ML IV ×5 (00:11→23:42)
[2023-11-18] MEDS: 0.9 % Sodium Chloride Flush 3 ML SYRINGE IVFLUSH ×3 (00:14→20:22)
[2023-11-18 04:00] VITALS: BP 131/84; PULSE 65; RESP 16; TEMP 36.8; O2SAT 96
[2023-11-18 06:42] LABS: Basophils Percent Auto 0.2 % (0-2); Hematocrit 41.4 % (42.0-52.0); Hemoglobin 14.1 g/dl (14.0-18.0); Imm Gran Abs Auto 0.07 X10*3/uL (0.00-0.03); Imm Gran Pct Auto 0.6 % (0.0-0.4); Lymphocytes Absolute Auto 0.4 X10*3/uL (1.2-4.9); Lymphocytes Percent Auto 3.1 % (20-40); MANUAL DIFF FLAG SCAN; Mean Corpuscular HGB Conc 34.1 g/dl (31.0-36.0); Mean Corpuscular Hemoglobin 30.5 pg (27.0-33.0); Mean Corpuscular Volume 89.4 fL (80.0-98.0); Monocytes Absolute Auto 0.6 X10*3/uL (0.1-1.2); Neutrophils Absolute Auto 11.4 x10*3/uL (2.0-8.3); Neutrophils Percent Auto 91.1 % (45-73); Platelet Count 287 X10*3/uL (160-400); Red Blood Count 4.63 X10*6/uL (4.60-5.80); Red Cell Distribution Width 13.5 % (11.0-16.0); SCAN SMEAR FLAG 1; White Blood Count 12.5 X10*3/uL (4.8-10.8)
[2023-11-18 07:01] LABS: Alanine Aminotransferase 56 U/L (0-40); Albumin Level 3.5 g/dL (3.5-5.0); Alkaline Phosphatase 66 U/L (39-117); Anion Gap 13 (12-20); Aspartate Amino Transferase 59 U/L (5-37); Bilirubin Total 0.9 mg/dL (0.0-1.0); Blood Urea Nitrogen 11 mg/dL (9-16); Calcium 8.9 mg/dL (8.4-10.2); Carbon Dioxide 25 mmol/L (22-29); Chloride 104 mmol/L (96-108); Estimated Glomerular Filt Rate > 60; Glucose Random 161 mg/dL (60-115); Potassium 4.4 mmol/L (3.3-5.1); Sodium 138 mmol/L (135-145); Total Protein 6.5 g/dL (6.5-8.0)
[2023-11-18 07:44] VITALS: BP 166/95; PULSE 67; RESP 17; TEMP 36.6; O2SAT 97
[2023-11-18 07:45] LABS: SLIDE REVIEW VERIFIED
[2023-11-18] MEDS: Pantoprazole Sodium 40 MG/10 ML VIAL IVPUSH (07:53)
[2023-11-18] MEDS: HYDROmorphone HCl 1 MG/ML SYRINGE IVPUSH ×4 (07:53→20:21)
--- NOTE | 2023-11-18 09:35 | PM.PNGS ---
Subjective Subjective Date of Service: 11/18/23 Interval history: Tolerating diet Says he is sore on incisions Ambulating although with pain Physical Exam Vital Signs: Vital Signs: Last Vital Signs Temp 97.9 F 11/18/23 07:44 Pulse 67 11/18/23 07:44 Resp 17 11/18/23 07:44 BP 166/95 H 11/18/23 07:44 Pulse Ox 97 11/18/23 07:44 O2 Del Method Room Air 11/18/23 07:44 O2 Flow Rate 5 11/17/23 23:30 BMI result Body Mass Index 26.6 Const: General: no acute distress Resp: Effort & Inspection: normal respiratory effort Cardio: Rate: regular rate GI: Other: Drain in place, serosanguineous, all dressings dry Palpation (GI): Soft to palpation and no guarding Objective Data Active Medications Acetaminophen (Acetaminophen 325 Mg Tablet) 650 mg PO Q4H PRN PRN Reason: Fever >100.4 Last Admin: 11/17/23 16:04 Dose: 650 mg Documented By: MONIKA Hydromorphone HCl (Hydromorphone Hcl 1 Mg/Ml Syringe) 1 mg IVPUSH Q3H PRN; Protocol PRN Reason: Pain, Severe (Pain Scale 7-10) Last Admin: 11/18/23 07:53 Dose: 1 mg Documented By: MILAGROS Sodium Chloride (Ns) 1,000 mls @ 100 mls/hr IVCONT .Q10H [facility] Last Admin: 11/18/23 00:04 Dose: 100 mls/hr Documented By: BROOKE Piperacillin Sod/Tazobactam (Sod 3.375 gm/ Sodium Chloride) 50 mls @ 100 mls/hr IV Q6H [facility] Last Infusion: 11/18/23 07:07 Dose: Infused Documented By: MILAGROS Ondansetron HCl (Ondansetron Hcl 4 Mg/2 Ml Vial) 4 mg IVPUSH Q8H PRN PRN Reason: Nausea and Vomiting Oxycodone HCl (Oxycodone Hcl Immed Release 5 Mg Tablet) 5 mg PO Q4H PRN PRN Reason: Pain, Mild (Pain Scale 1-3) Oxycodone HCl (Oxycodone Hcl Immed Release 5 Mg Tablet) 10 mg PO Q4H PRN PRN Reason: Pain, Moderate(Pain Scale 4-6) Pantoprazole Sodium (Pantoprazole Sodium 40 Mg/10 Ml Vial) 40 mg IVPUSH DAILY [facility] Last Admin: 11/18/23 07:53 Dose: 40 mg Documented By: MILAGROS Sodium Chloride (0.9 % Sodium Chloride Flush 3 Ml Syringe) 3 ml IVFLUSH QSHIFT [facility] Last Admin: 11/18/23 07:54 Dose: Not Given Documented By: MILAGROS Non-Admin Reason: IV Running Labs 11/18/23 06:06 11/18/23 06:06 Labs: Laboratory Results - last 24 hr 11/18/23 06:06 MCV 89.4 MCH 30.5 MCHC 34.1 RDW 13.5 Plt Count 287 MPV 9.0 L Immature Gran % (Auto) 0.6 H Neut % (Auto) 91.1 H Lymph % (Auto) 3.1 L [place] % (Auto) 5.0 Eos % (Auto) 0.0 Baso % (Auto) 0.2 Lymph # (Auto) 0.4 L [place] # (Auto) 0.6 Eos # (Auto) 0.0 Baso # (Auto) 0.0 Abs Immat Gran (auto) 0.07 H Absolute Neuts (auto) 11.4 H Absolute Nucleated RBC 0.000 Nucleated RBC % (auto) 0.0 Smear Tech's Comments VERIFIED Anion Gap 13 Estim Creat Clear Calc 109.0 Estimated GFR > 60 Random Glucose 161 H Calcium 8.9 D Total Bilirubin 0.9 AST 59 H ALT 56 H Alkaline Phosphatase 66 Total Protein 6.5 Albumin 3.5 Procedures Date of Service Date of Service: 11/18/23 Progress Note: A&P Assessment and plan (1) Acute cholecystitis: Status: Acute Assessment and Plan: Status post laparoscopic cholecystectomy with Dr. Hua last night Looks well However, he states that he may not be ready to be discharged today because of his pain level Says he is very sore on all his incisions Labs okay Encouraged to ambulate Good oral intake Likely DC home tomorrow Plan to remove drain prior to discharge Time Spent With Patient Time: Total time managing care of this patient today ____ minutes. Quality Stroke Does the patient have a stroke diagnosis?: No VTE Prior VTE?: No VTE Risk Level:: Surgical - low VTE Device Contraindication: N/A - Device Ordered VTE Drug Contraindication: Treatment Not Indicated
--- NOTE | 2023-11-18 09:48 | MHC.CM.PN ---
Addendum entered by Natasha Arellano RN 11/18/23 14:42: Patient medically cleared for dc home self care. Original Note: Patient from home w/ partner. Functionally independent. Denies use of DME or services. PCP Mariah Irby PA-C? No HCP. CM provided education and offered assistance. Patient's daughters are visiting this afternoon and he would like to discuss w/ them first. DP: Goal is home self care via family transport. CM will continue to follow.
[2023-11-18] MEDS: oxyCODONE HCl Immed Release 5 MG TABLET PO ×2 (10:31→11:20)
[2023-11-18 12:00] VITALS: BP 118/79; PULSE 94; RESP 16; TEMP 36.6; O2SAT 96
--- NOTE | 2023-11-18 12:25 | PM.EVENT ---
Event Note Date of Service: 11/18/23 Event Note: Seen on early PM rounds he says he feels ready to be discharged looks well tolerating diet ambulating ANASTASIA drain - serosanguinous; will not remove today I reviewed with him dc instructions ffup next week and remove ANASTASIA in the office his daughter was at bedside Time Spent With Patient Time: Total time managing care of this patient today ____ minutes.
--- NOTE | 2023-11-18 15:26 | HO.POSTANES ---
Post Anesthesia Evaluation Post Anesthesia Evaluation Date of Service: 11/18/23 Vital Signs: Vital Signs Temp Pulse Resp BP Pulse Ox O2 Del Method 11/18/23 12:00 97.8 F 94 16 118/79 96 Room Air 11/18/23 07:44 97.9 F 67 17 166/95 H 97 Room Air 11/18/23 04:00 98.3 F 65 16 131/84 96 Room Air Anesthesia: General Endotracheal-GETA Mental Status: Awake Pain Control: Satisfactory (A little soreness) Nausea/Vomiting: None Hydration: Adequate Anesthesia-Related Issues: No Anes. Related Issues
[2023-11-18 15:55] VITALS: BP 131/85; PULSE 83; RESP 18; TEMP 36.7; O2SAT 96
--- NOTE | 2023-11-18 16:23 | PM.EVENT ---
Event Note Date of Service: 11/18/23 Event Note: Patient decided to stay overnight He says that he had been ambulating and would gets sore He feels that oral pain meds may not be enough for tonight so he says he would like to stay until tomorrow He looks well otherwise Tolerating diet well We will keep tonight and likely DC home tomorrow Seems to be doing well overall Time Spent With Patient Time: Total time managing care of this patient today ____ minutes.
[2023-11-18 19:27] VITALS: BP 120/83; PULSE 73; RESP 18; TEMP 36.6; O2SAT 94
[2023-11-18 23:43] VITALS: BP 127/87; PULSE 80; RESP 18; TEMP 36.8; O2SAT 96
[2023-11-19] MEDS: HYDROmorphone HCl 1 MG/ML SYRINGE IVPUSH ×3 (00:16→09:02)
[2023-11-19 00:46] VITALS: RESP 18
[2023-11-19 04:00] VITALS: BP 124/71; PULSE 63; RESP 16; TEMP 36.3; O2SAT 94
[2023-11-19] MEDS: Piperacillin Sodium/Tazobactam 3.375 GM in 0.9 % Sodium Chloride 50 ML IV (05:22)
[2023-11-19 05:52] VITALS: RESP 18
[2023-11-19 07:12] VITALS: BP 112/74; PULSE 67; RESP 17; TEMP 36.2; O2SAT 96
--- NOTE | 2023-11-19 07:42 | PM.PNGS ---
Subjective Subjective Date of Service: 11/19/23 Interval history: some incisional pain states he feels ready to go home tolerating diet Physical Exam Vital Signs: Vital Signs: Last Vital Signs Temp 97.2 F 11/19/23 07:12 Pulse 67 11/19/23 07:12 Resp 17 11/19/23 07:12 BP 112/74 11/19/23 07:12 Pulse Ox 96 11/19/23 07:12 O2 Del Method Room Air 11/19/23 07:12 O2 Flow Rate 5 11/17/23 23:30 BMI result Body Mass Index 26.6 Const: General: comfortable and no acute distress Eyes: Sclerae: sclerae normal Resp: Effort & Inspection: normal respiratory effort Cardio: Rate: regular rate GI: Other: incisions clean and dry, ANASTASIA drain w/some sero sanguinous output Palpation (GI): Soft to palpation and not firm Objective Data Active Medications Acetaminophen (Acetaminophen 325 Mg Tablet) 650 mg PO Q4H PRN PRN Reason: Fever >100.4 Last Admin: 11/17/23 16:04 Dose: 650 mg Documented By: MONIKA Hydromorphone HCl (Hydromorphone Hcl 1 Mg/Ml Syringe) 1 mg IVPUSH Q3H PRN; Protocol PRN Reason: Pain, Severe (Pain Scale 7-10) Last Admin: 11/19/23 05:19 Dose: 1 mg Documented By: BERTO Piperacillin Sod/Tazobactam (Sod 3.375 gm/ Sodium Chloride) 50 mls @ 100 mls/hr IV Q6H [facility] Last Infusion: 11/19/23 05:52 Dose: Infused Documented By: BERTO Ondansetron HCl (Ondansetron Hcl 4 Mg/2 Ml Vial) 4 mg IVPUSH Q8H PRN PRN Reason: Nausea and Vomiting Oxycodone HCl (Oxycodone Hcl Immed Release 5 Mg Tablet) 5 mg PO Q4H PRN PRN Reason: Pain, Mild (Pain Scale 1-3) Last Admin: 11/18/23 11:20 Dose: 5 mg Documented By: MILAGROS Oxycodone HCl (Oxycodone Hcl Immed Release 5 Mg Tablet) 10 mg PO Q4H PRN PRN Reason: Pain, Moderate(Pain Scale 4-6) Pantoprazole Sodium (Pantoprazole Sodium 40 Mg/10 Ml Vial) 40 mg IVPUSH DAILY [facility] Last Admin: 11/18/23 07:53 Dose: 40 mg Documented By: MILAGROS Sodium Chloride (0.9 % Sodium Chloride Flush 3 Ml Syringe) 3 ml IVFLUSH QSHIFT [facility] Last Admin: 11/18/23 20:22 Dose: 3 ml Documented By: BERTO Labs 11/18/23 06:06 11/18/23 06:06 Labs: Laboratory Results - last 24 hr 11/18/23 06:06 MCV 89.4 MCH 30.5 MCHC 34.1 RDW 13.5 Plt Count 287 MPV 9.0 L Immature Gran % (Auto) 0.6 H Neut % (Auto) 91.1 H Lymph % (Auto) 3.1 L [place] % (Auto) 5.0 Eos % (Auto) 0.0 Baso % (Auto) 0.2 Lymph # (Auto) 0.4 L [place] # (Auto) 0.6 Eos # (Auto) 0.0 Baso # (Auto) 0.0 Abs Immat Gran (auto) 0.07 H Absolute Neuts (auto) 11.4 H Absolute Nucleated RBC 0.000 Nucleated RBC % (auto) 0.0 Smear Tech's Comments VERIFIED Microbiology Microbiology Results: Microbiology 11/17/23 08:26 Blood Culture - Preliminary Blood - Venous No growth after 24 hours. 11/17/23 08:28 Blood Culture - Preliminary Blood - Venous No growth after 24 hours. Procedures Date of Service Date of Service: 11/19/23 Progress Note: A&P Assessment and plan (1) Acute cholecystitis: Status: Acute Assessment and Plan: s/p lap harriett looks well good GI function ok to dc home ANASTASIA drain in place - plan to dc next week in office instructions reinforced Time Spent With Patient Time: Total time managing care of this patient today ____ minutes. Quality Stroke Does the patient have a stroke diagnosis?: No VTE Prior VTE?: No VTE Risk Level:: Surgical - low VTE Device Contraindication: N/A - Device Ordered VTE Drug Contraindication: Treatment Not Indicated
--- NOTE | 2023-11-19 08:42 | MHC.CM.PN ---
Patient did not dc yesterday d/t increased pain. Per MD note will dc today with ANASTASIA drain in place. Patient feels comfortable managing drain independently and has rec'd teaching from RN. Partner is at bedside to transport home. RN aware.
[2023-11-19] MEDS: Pantoprazole Sodium 40 MG/10 ML VIAL IVPUSH (08:58)
[2023-11-19] MEDS: 0.9 % Sodium Chloride Flush 3 ML SYRINGE IVFLUSH (09:02)
--- NOTE | 2023-11-19 09:44 | PM.DS ---
DS: Providers Provider Date of Service: 11/19/23 Date of admission: 11/17/23 11:58 Date of discharge: 11/19/23 Primary care physician: JIM Pizarro Attending physician on admission: Cheryl Hua Attending physician on discharge: Shad Odonnell DS: Diagnosis Discharge Diagnosis (1) Acute cholecystitis: Status: Acute DS: Summary Hospital Course Hospital Course: HPI AT ADMISSION: Dominguez Flores is a 43 year old male who comes in with several day history of abdominal pain more in the epigastric area but a little bit to the right side. He has had pain similar to this on and off over the years and a couple years ago it got bad any came here for nothing of significance was found. He comes in now after having secondary pain last night after eating some Mandarin. Here he is noted to have discrete tenderness in the right upper quadrants and guarding. HOSPITAL COURSE: He was admitted to the surgical service for further treatment of the cholelithiasis and cholecystitis. It was recommended to proceed with laparoscopic cholecystectomy and he was added onto the OR schedule for that night. On 11/17/23, a laparoscopic cholecystectomy was performed by Dr. Hua without immediate complications. He was found to have a very intrahepatic, thickened, inflamed gallbladder with a lot of omentum and gastrocolic fat adhesions to the gallbladder. ANASTASIA drain was placed intraop. He had an uncomplicated but slow recovery course due to incisional pain and remained inpatient until POD #2. On the day of discharge, he was tolerating a solid diet without nausea or vomiting, had good incisional pain control on oral analgesics, and was ambulating without difficulty. His abd exam was benign with clean incisions. His ANASTASIA drain had serosanguineous output and was left in place. He was discharged to home on 11/19/23 in stable condition. He is to follow up in the office in 1 week. Status at Discharge Functional status at discharge: independent ambulation Time Attestation Discharge Coordination Time (in mins): 30 Quality: Safe Use of Opioids Does Pt have an Active Cancer Diagnosis on the Problem List?: No Quality: Stroke Does the patient have a stroke diagnosis?: No Physical Exam Vital Signs: Vital Signs: Last Vital Signs Temp 97.2 F 11/19/23 07:12 Pulse 67 11/19/23 07:12 Resp 17 11/19/23 07:12 BP 112/74 11/19/23 07:12 Pulse Ox 96 11/19/23 07:12 O2 Del Method Room Air 11/19/23 07:12 O2 Flow Rate 5 11/17/23 23:30 BMI result Body Mass Index 26.6 Const: General: comfortable, no acute distress and alert GI: Inspection: No distended and Yes incision (clean) Palpation (GI): Soft to palpation Skin: General skin exam: no rashes or lesions noted DS: Data Data Completed and Pending Completed studies during hospitalization [Text1]: 11/17/23 22:42 Surgical [PTH] Routine Gallbladder, cholecystectomy: Gangrenous cholecystitis; cholelithiasis; benign liver parenchyma. Discharge Plan Discharge Anticipated Discharge Date/Time: 11/19/23 10:37 Patient Disposition: Home, Self-Care Discharge Diagnosis: acute cholecystitis Referrals: Shad Odonnell MD [Physician] - 1 Week Physician,Lexii J [Physician] - 1 Week Discharge Medications: New oxycodone-acetaminophen [Percocet] 5-325 mg tablet 1 tab PO Q4-6H PRN (Reason: pain) Qty: 25 0RF Rx Instructions: Partial Fill upon patient request. ibuprofen 600 mg tablet 600 mg PO Q6H PRN (Reason: pain) Qty: 30 0RF Continued dextroamphetamine-amphetamine [Adderall XR] 20 mg capsule,extended release 24hr 1 cap PO BID@0900,1400 Discharge Orders: Discharge Order (Routine); Ordered 11/18/23 Ordered By: Shad Odonnell Diet: Advance to usual diet Activity on Discharge: No heavy lifting Stand Alone Forms: Patient Portal Discharge page Print Language: Bengali Activity Restrictions/Additional Instructions: empty ANASTASIA drain twice a day and record totals If the incision area is tender, you may apply an ice pack for short intervals (No more than 20 minutes on, followed by at least 20 minutes off). Do not apply heat. Do not use creams, lotions, or topical antibiotics unless instructed to do so by your surgeon. These can cause infection or allergic reaction. No lifting more than 20 lbs Okay to shower Okay to change dressings with gauze or Band-Aid No strenuous activities Call the office for follow-up in 2 weeks - with Dr. Odonnell Call Your Doctor If: -Your temperature exceeds 101.5? F -You experience excessive pain or swelling -You have an unexpected reaction to medication -You have excessive bleeding -You experience continued vomiting/nausea -Your incision begins to separate -Your incision shows signs of infection such as increased redness, swelling, excessive pain, drainage (light blood or clear fluid is normal) or heat Care Plan Goals: return to baseline health Health Concerns: postop pain Plan of Treatment: oral pain meds Assessment: doing well clinically Patient Instructions: Cholecystitis (GEN), Laparoscopic Cholecystectomy (GEN) Discharge Date/Time: 11/19/23 10:13
== END 2023-11-19 10:13 | disposition home or self-care (01) | DRG 263 ==
LOC: HO.ED 08:09 → HO.EDOVER 12:07 → HO.S3 14:40
PROVIDERS: Admitting Provider Surgery; Emergency Provider Emergency Medicine; PCP Physician Assistant; Visit Provider Surgery
PROC: 0FT44ZZ Resection of Gallbladder, Percutaneous Endoscopic Approach (ICD-10-PCS; CPT 47562; principal; 2023-11-17 06:30)
DX: K81.0 Acute cholecystitis (principal); F90.9 Attention-deficit hyperactivity disorder, unspecified type; Z20.822 Contact with and (suspected) exposure to COVID-19; Z79.899 Other long term (current) drug therapy
CPT/HCPCS: 0241U; 36415; 74177; 80048; 80053; 80076; 81003; 83605; 83690; 85025; 85610; 85730; 87040; 88304; 99285; C9113; J0737; J1100; J1170; J1885; J2250; J2270; J2405; J2543; J2704; J2795; J3010; Q9967

== ENCOUNTER → 2023-11-17 11:58 | Outpatient (BNV) | payer OTHER, SELFPAY | PROVIDERS: Admitting Provider Surgery; Emergency Provider Emergency Medicine; Visit Provider Surgery | DX: K81.0 Acute cholecystitis (principal) | CPT/HCPCS: 47562; 99024; 99222; 99499 ==

== ENCOUNTER 2023-11-26 10:33 | Outpatient (AMB) | payer MEDICAID, SELFPAY ==
--- NOTE | 2023-11-26 10:34 | A.OFFVIS_ITS ---
Vital Signs 11/26/23 10:37 Height 5 ft 7 in Weight 165 lb 5.547 oz BMI 25.9 BP 113/70 Blood Pressure Location Lt brachial Position Sitting Pulse 86 Intake Visit Reasons: s/p lap harriett Intake Note: Dominguez presents in the office as a follow up lap harriett. CC: He states that he is here as a follow up to his procedure and he states that he is having pains on the right side. He states that was changing the gauze and put too much pressure on accident and he is a little concerned of the discomfort - when he goes to sleep he is having issues laying on one side. Allergies No Known Allergies Allergy (Unverified 11/26/23 10:37) HPI HPI s/p lap harriett: Details: 43-year-old male here for a postop visit. He had undergone laparoscopic cholecystectomy with Dr. Hua last 11/17/2023. He tolerated procedure well. He was discharged on postop day 2 with a ANASTASIA drain in place He says he has good oral intake. He has some pain but this has been much improved. He denies any fever or chills He described very minimal clear serosanguineous output from his ANASTASIA drain. [facility] Medical History ADHD No acute medical problems Surgical History Previous back surgery Social History Household Members: Significant Other Housing: House Do you presently have visiting nurse or other home services: No Alcohol intake: current Alcohol intake frequency: holidays/special occasions only Patient Tobacco Use Status: Never used Tobacco service: No Review of Systems Const Denies chills and Denies fever(s) Card Denies chest pain, Denies dyspnea and Denies dyspnea on exertion Resp Denies cough, Denies dyspnea and Denies dyspnea on exertion GI Denies hematochezia and Denies change in bowel habits Denies hematuria and Denies difficulty urinating Musc Denies back pain and Denies limited range of motion Neuro Denies focal weakness and Denies convulsions Psych Denies depression and Denies mood swings Physical Exam Vital Signs: Last Vital Signs Pulse 86 11/26/23 10:37 BP 113/70 11/26/23 10:37 BMI result Body Mass Index 25.9 Const General: comfortable and no acute distress Eyes Sclerae: sclerae normal GI Other: ANASTASIA drain with scanty clear serosanguineous output, all incisions clean and dry Palpation (GI): Soft to palpation, not firm and nontender Assessment & Plan Assessment & Plan (1) Acute cholecystitis: Code(s): K81.0 - Acute cholecystitis Category: Medical Plan: Status post laparoscopic cholecystectomy. He is doing very well postoperatively I removed his ANASTASIA drain without difficulty dear I advised him to avoid lifting anything more than 20 lb for about 2-3 more weeks He looks well overall. He can follow up on a p.r.n. basis. His path report shows acute cholecystitis. Coding Level of Care Code Global (45746) Diagnoses Acute cholecystitis K81.0
[2023-11-26 10:37] VITALS: BP 113/70; PULSE 86; BMI 25.9
== END 2023-11-26 10:57 | disposition home or self-care (01) ==
PROVIDERS: PCP Physician Assistant; Visit Provider Surgery
DX: K81.0 Acute cholecystitis (principal)
CPT/HCPCS: 99024

== ENCOUNTER → 2023-11-26 10:33 | Outpatient (BNVA) | payer MEDICAID, SELFPAY | PROVIDERS: PCP Physician Assistant; Visit Provider Surgery | DX: K81.0 Acute cholecystitis (principal) | CPT/HCPCS: 99212 ==